=== PATIENT | female | born 1955 | race Caucasian/White ===

== ENCOUNTER 2016-05-01 12:55 | Emergency (ER) | payer OTHER ==
[~2016-05-01] VITALS: Ht 160 cm; Wt 92.8 kg
[~2016-05-01 12:55] MED LIST: ASPI-435 PO; LEVO125T5 PO; LISI-725 PO; LXP/20 PO; OMEP20CA59 PO; TRAZ-119 PO
[2016-05-01 13:11] VITALS: TEMP 36.6; Ht 160 cm; Wt 92.8 kg
[2016-05-01] MEDS ORDERED: HYDROCODONE/ACETAMOPHEN 5/325MG TAB PO STA (14:45)
[2016-05-01] MEDS ORDERED: CYCLOBENZAPRINE HCL 10 MG TAB PO STA (14:45)
[2016-05-01] MEDS ORDERED: KETOROLAC TROMETHAMINE 60 MG/2 ML VIAL IM STA (14:45)
--- NOTE | 2016-05-01 15:49 | DIAGNOSTIC IMAGING REPORT ---
L-SPINE MIN 4 VIEWS ROUTINE CLINICAL HISTORY: Low back pain. Evaluate for compression fracture. COMPARISON: CT of the abdomen and pelvis November 01, 2013. FINDINGS: There are cholecystectomy clips. Alignment of the lumbar spine is anatomic. Vertebral body heights are maintained. There is no acute fracture. Mild multilevel degenerative changes are present. There is extensive calcification of the abdominal aorta. IMPRESSION: 1. No acute lumbar spine fracture or subluxation. 2. Minimal multilevel degenerative changes of the lumbar spine. Electronically signed by: Tu Reynoso M.D. 05/01/2016 3:47 PM
--- NOTE | 2016-05-01 16:15 | EMERGENCY ROOM VISIT NOTE ---
ED Visit Note First contact with patient: 14:26 CHIEF COMPLAINT: Low back pain HISTORY OF PRESENT ILLNESS: This 60-year-old female patient complains of pain in the low back which started on Sunday. The patient states she does not remember any specific injury. She states later she was on the floor with her grandchildren and then could not get up. Since that time the pain has been getting progressively worse in the lower back and radiates around both sides and into her right buttocks. The patient denies any pain radiating down the leg or any numbness and tingling. The patient denies any prior injury to her back or any back surgery. The patient denies any urinary symptoms of frequency , urgency, dysuria or hematuria. REVIEW OF SYSTEMS:6 system review was performed and was negative unless stated otherwise in history of present illness. PMH: The patient is healthy; hypertension, cholecystectomy, kidney stones SOCIAL HISTORY: Patient lives with her . The patient denies any tobacco or alcohol use. PHYSICAL EXAM: Vital Signs normal: Reviewed Nurse's notes and agree. GENERAL: 60-year-old white female appears uncomfortable secondary to back pain. MENTAL STATUS: Alert and oriented 3 LUMBAR SPINE: No gross bony abnormality noted. Patient is tender to palpation over the spinous processes of the mid to low lumbar region. She is tender to palpation over bilateral paravertebral regions at this level. She has limited range of motion in all directions secondary to pain. Muscle strength is 5 out of 5 bilateral lower extremities and symmetrical. NEURO: Patient is able to heel and toe walk without difficulty. I lateral patellar and Achilles reflexes are 2+. Sensation is intact to pinprick bilateral lower extremities. Negative straight leg raise bilaterally. EMERGENCY DEPARTMENT COURSE: The patient was evaluated. The patient was given Toradol 60 mg IM, Flexeril 10 mg by mouth and [place] 5/325 mg 2 tablets by mouth for pain. X-ray of the lumbar spine was ordered and interpreted by the radiologist and myself. DIAGNOSTICS:L-SPINE MIN 4 VIEWS ROUTINE CLINICAL HISTORY: Low back pain. Evaluate for compression fracture. COMPARISON: CT of the abdomen and pelvis November 01, 2013. FINDINGS: There are cholecystectomy clips. Alignment of the lumbar spine is anatomic. Vertebral body heights are maintained. There is no acute fracture. Mild multilevel degenerative changes are present. There is extensive calcification of the abdominal aorta. IMPRESSION: 1. No acute lumbar spine fracture or subluxation. 2. Minimal multilevel degenerative changes of the lumbar spine. Electronically signed by: Tu Reynoso M.D. 05/01/2016 3:47 PM Patient was informed of the findings. The patient was reevaluated was feeling slightly better. The patient was discharged home in stable condition. DIAGNOSIS: Lumbar strain DISCHARGE INSTRUCTIONS AND TREATMENT: Ibuprofen 600 mg every 6 hours with food for pain. Rx is given for [place] 5/325 mg. 1-2 tablets every 6 hours as needed for more severe pain. Do not drive while taking the Vicodin. Patient was also given Rx for Flexeril 10 mg. One tablet p.o. every 8 hours for muscle spasms. Dispense [address] taking the Flexeril. Avoid staying in any one position for an extended period of time. Keep scheduled appointment with your family physician tomorrow for additional pain medication if needed . Problem List Medical Problems: (1) Acid reflux Status: Chronic (2) External hemorrhoid Status: Chronic Current/Historical Medications Scheduled Aspirin (Aspirin 81), 81 MG PO QAM Escitalopram Oxalate (Escitalopram Oxalate), 20 MG PO DAILY Levothyroxine Sodium (Levothyroxine Sodium), 125 MCG PO DAILY Lisinopril (Zestril), 20 MG PO QAM Omeprazole (Prilosec), 20 MG PO DAILY Trazodone Hcl (Desyrel), 50 MG PO HS Allergies Coded Allergies: No Known Allergies (Verified , 05/01/16) Vital Signs Date Time Temp Pulse Resp B/P Pulse Ox O2 Delivery O2 Flow Rate FiO2 05/01/16 13:11 36.6 80 18 164/75 95 Room Air Medications Administered Medications (Trade) Dose Ordered Sig/Zabrina Route Start Time Stop Time Status Last Admin Dose Admin Ketorolac Tromethamine (Toradol Inj) 60 mg NOW STAT IM 05/01/16 14:45 05/01/16 14:47 DC 05/01/16 14:52 60 MG Cyclobenzaprine HCl (Flexeril Tab) 10 mg NOW STAT PO 05/01/16 14:45 05/01/16 14:47 DC 05/01/16 14:51 10 MG Acetaminophen/ Hydrocodone Bitart ([place] 5/325 Tab) 2 tab NOW STAT PO 05/01/16 14:45 05/01/16 14:47 DC 05/01/16 14:51 2 TAB Departure Information Referrals Pro,Slava Hale M.D. (PCP) Patient Instructions A Signature Page, [facility]
[2016-05-01] MEDS ORDERED: HYDR-5688 PO (16:17)
[2016-05-01] MEDS ORDERED: CYCL10TA6 PO (16:17)
[2016-05-01 16:35] VITALS: BP 125/78; PULSE 78; O2SAT 95
== END 2016-05-01 16:37 | disposition home or self-care (01) ==
LOC: C.EDB 12:55 → C.EDD 16:37
DX: S39.012A Strain of muscle, fascia and tendon of lower back, initial encounter (principal); X58.XXXA Exposure to other specified factors, initial encounter; I10 Essential (primary) hypertension; K21.9 Gastro-esophageal reflux disease without esophagitis; Z79.82 Long term (current) use of aspirin; Z79.899 Other long term (current) drug therapy

== ENCOUNTER → 2016-06-16 | Outpatient (CLI) | payer OTHER ==
[~2016-06-16] MED LIST changes: +HYDR-5688 PO; +LEVO125T4 PO; -LEVO125T5 PO; -TRAZ-119 PO; +TRAZ1TAB16 PO
[2016-06-16 10:12] LABS: BASO % 0.6 %; BASO ABS # 0.05 K/uL (0-0.2); COMPLETE YES; EOS % 3.4 %; HEMATOCRIT 42.2 % (37-47); IG% 0.2 %; LYMPH % 24.2 %; LYMPH ABS # 2.11 K/uL (1.2-3.4); MEAN CELL VOLUME 85.6 fL (80-100); MEAN CORPUSCULAR HEMOGLOBIN 29.2 pg (25-34); MEAN CORPUSCULAR HGB CONC 34.1 g/dl (32-36); MEAN PLATELET VOLUME 9.3 fL (7.4-10.4); MONO % 9.5 %; NEUT % 62.1 %; PLATELET COUNT 308 K/uL (130-400); RED BLOOD COUNT 4.93 M/uL (4.2-5.4); WHITE BLOOD COUNT 8.73 K/uL (4.8-10.8)
[2016-06-16 10:28] LABS: ALT/SGPT 26 U/L (12-78); AST/SGOT 17 U/L (15-37); BLOOD UREA NITROGEN 15 mg/dl (7-18); CALCIUM 8.9 mg/dl (8.5-10.1); CARBON DIOXIDE 23 mmol/L (21-32); CHLORIDE 109 mmol/L (98-107); CHOLESTEROL 172 mg/dl (0-200); CREATININE 0.79 mg/dl (0.60-1.20); GLUCOSE 96 mg/dl (70-99); POTASSIUM 4.3 mmol/L (3.5-5.1); SODIUM 141 mmol/L (136-145)
[2016-06-16 10:34] LABS: CHOLESTEROL/HDL RATIO 3.6; HDL CHOLESTEROL 48 mg/dl; LDL CHOLESTEROL CALCULATED 87 mg/dl; TRIGLYCERIDES 186 mg/dl (0-150); VERY LOW DENSITY LIPOPROT CALC 37 mg/dl
== END | disposition home or self-care (01) ==
LOC: C.LAB1850 09:05
PROVIDERS: ATTEND Internal Medicine
DX: E03.9 Hypothyroidism, unspecified (principal); I10 Essential (primary) hypertension; K21.9 Gastro-esophageal reflux disease without esophagitis; M54.9 Dorsalgia, unspecified

== ENCOUNTER → 2016-11-20 | Outpatient (CLI) | payer OTHER ==
[~2016-11-20] MED LIST changes: -HYDR-5688 PO
--- NOTE | 2016-11-20 14:31 | MAMMOGRAPHY REPORT ---
BILATERAL DIGITAL SCREENING MAMMOGRAM WITH CAD: 11/20/2016 CLINICAL HISTORY: Routine screening. Patient has no complaints. TECHNIQUE: Current study was also evaluated with a Computer Aided Detection (CAD) system. Bilateral CC and MLO views were obtained. COMPARISON: Comparison is made to exams dated: 05/27/2015 mammogram, 03/30/2014 mammogram, 03/28/2013 mammogram, 03/26/2012 mammogram - [facility], and 08/29/2007. BREAST COMPOSITION: The tissue of both breasts is heterogeneously dense, which may obscure small mas ses. FINDINGS: No suspicious masses, calcifications, or areas of architectural distortion are noted in ei ther breast. There has been no significant interval change compared to prior exams. Bilateral benign -appearing calcifications are not significantly changed. IMPRESSION: ACR BI-RADS CATEGORY 2: BENIGN There is no mammographic evidence of malignancy. A 1 year screening mammogram is recommended. The pa tient will receive written notification of the results. Approximately 10% of breast cancers are not detected with mammography. A negative mammographic report should not delay biopsy if a clinically suggestive mass is present. Lissy Ayon M.D. /:11/20/2016 12:27:43 Appeals And Generalist Clerk: Mireille OCHOA)(Daryl), [facility] letter sent: Normal 1/2 BI-RADS Code: ACR BI-RADS Category 2: Benign
== END | disposition home or self-care (01) ==
LOC: C.MAMM 09:39
PROVIDERS: ATTEND Physician Assistant
DX: Z12.31 Encounter for screening mammogram for malignant neoplasm of breast (principal)

== ENCOUNTER → 2017-07-20 | Outpatient (CLI) | payer OTHER ==
[~2017-07-20] MED LIST changes: -LEVO125T4 PO; +LEVO125T5 PO; +TRAZ-119 PO; -TRAZ1TAB16 PO
[2017-07-20 09:51] LABS: BLOOD UREA NITROGEN 15 mg/dl (7-18); CALCIUM 8.8 mg/dl (8.5-10.1); CARBON DIOXIDE 27 mmol/L (21-32); CREATININE 0.94 mg/dl (0.60-1.20); GLUCOSE 100 mg/dl (70-99); POTASSIUM 3.8 mmol/L (3.5-5.1); SODIUM 139 mmol/L (136-145)
[2017-07-20 10:04] LABS: CHOLESTEROL 174 mg/dl (0-200); LDL CHOLESTEROL CALCULATED 90 mg/dl
== END | disposition home or self-care (01) ==
LOC: C.LAB1850 08:04
PROVIDERS: ATTEND Internal Medicine
DX: E03.9 Hypothyroidism, unspecified (principal); I10 Essential (primary) hypertension

== ENCOUNTER → 2017-07-25 | Outpatient (CLI) | payer OTHER | END | disposition home or self-care (01) | LOC: C.LAB1850 09:37 | PROVIDERS: ATTEND Physician Assistant | DX: R53.83 Other fatigue (principal); R73.9 Hyperglycemia, unspecified; E78.5 Hyperlipidemia, unspecified; Z80.42 Family history of malignant neoplasm of prostate; M54.9 Dorsalgia, unspecified ==

== ENCOUNTER → 2017-09-04 | Outpatient (CLI) | payer OTHER ==
[~2017-09-04] MED LIST changes: +AMOX875T PO; +ASPI-390 PO; +CALC-393 PO; +ESCI10TA17 PO; +MELATAB2 PO; -OMEP20CA59 PO; +OXYB5TAB PO; +PANT40TA2 PO; +RANI150T85 PO; +RQP25 PO; -TRAZ-119 PO
== END | disposition home or self-care (01) ==
LOC: C.LAB1850 13:38
PROVIDERS: ATTEND Physician Assistant
DX: E03.9 Hypothyroidism, unspecified (principal)

== ENCOUNTER → 2017-11-14 | Outpatient (CLI) | payer OTHER ==
[~2017-11-14] MED LIST changes: -AMOX875T PO; +LXP10 PO; +OMEP20TA14 PO
--- NOTE | 2017-11-14 16:12 | DIAGNOSTIC IMAGING REPORT ---
KUB CLINICAL HISTORY: R19.7 [id number] Abdominal [id number] Abdominal tend COMPARISON STUDY: No previous studies for comparison. FINDINGS: The soft tissues, psoas shadows, renal outlines and intestinal gas pattern appear normal. There is no evidence for bowel obstruction. No abnormal abdominal calcifications are seen. IMPRESSION: Normal study. The above report was generated using voice recognition software. It may contain grammatical, syntax or spelling errors. Electronically signed by: Eddi Cisneros M.D. 11/14/2017 4:11 PM Dictated Date/Time: 11/14/2017 4:10 PM
[2017-11-14 17:52] LABS: BASO % 0.3 %; BASO ABS # 0.03 K/uL (0-0.2); EOS % 2.3 %; HEMATOCRIT 43.5 % (37-47); HEMOGLOBIN 14.2 g/dL (12.0-16.0); IG# 0.02 K/uL (0.00-0.02); LYMPH % 34.2 %; MEAN CELL VOLUME 87.5 fL (80-100); MEAN CORPUSCULAR HEMOGLOBIN 28.6 pg (25-34); MEAN CORPUSCULAR HGB CONC 32.6 g/dl (32-36); MEAN PLATELET VOLUME 9.6 fL (7.4-10.4); MONO % 5.9 %; MONO ABS # 0.52 K/uL (0.11-0.59); NEUT % 57.1 %; NEUT ABS # 4.99 K/uL (1.4-6.5); PLATELET COUNT 271 K/uL (130-400); RED CELL DISTRIBUTION WIDTH CV 13.4 % (11.5-14.5); RED CELL DISTRIBUTION WIDTH SD 42.6 fL (36.4-46.3); WHITE BLOOD COUNT 8.76 K/uL (4.8-10.8)
[2017-11-14 18:04] LABS: ALBUMIN 3.6 gm/dl (3.4-5.0); ALKALINE PHOSPHATASE 59 U/L (45-117); ALT/SGPT 28 U/L (12-78); AST/SGOT 17 U/L (15-37); BLOOD UREA NITROGEN 12 mg/dl (7-18); CALCIUM 9.2 mg/dl (8.5-10.1); CARBON DIOXIDE 28 mmol/L (21-32); CREATININE 0.91 mg/dl (0.60-1.20); GLUCOSE 77 mg/dl (70-99); SODIUM 139 mmol/L (136-145); TOTAL PROTEIN 7.2 gm/dl (6.4-8.2)
== END | disposition home or self-care (01) ==
LOC: C.RAD1850 15:24
PROVIDERS: ATTEND Internal Medicine
DX: R19.7 Diarrhea, unspecified (principal); R10.819 Abdominal tenderness, unspecified site; E03.9 Hypothyroidism, unspecified

== ENCOUNTER 2017-11-22 12:42 | Emergency (ER) | payer OTHER ==
[~2017-11-22] VITALS: Ht 160 cm; Wt 92.3 kg
[~2017-11-22 12:42] MED LIST changes: -LXP10 PO; -OMEP20TA14 PO
[2017-11-22 12:44] VITALS: TEMP 36.4; Ht 160 cm; Wt 92.3 kg
[2017-11-22 13:18] VITALS: O2SAT 96
[2017-11-22 13:26] LABS: BASO % 0.6 %; BASO ABS # 0.07 K/uL (0-0.2); EOS ABS # 0.36 K/uL (0-0.5); HEMATOCRIT 43.2 % (37-47); HEMOGLOBIN 14.6 g/dL (12.0-16.0); IG# 0.04 K/uL (0.00-0.02); LYMPH % 20.3 %; LYMPH ABS # 2.47 K/uL (1.2-3.4); MEAN CELL VOLUME 86.6 fL (80-100); MEAN CORPUSCULAR HEMOGLOBIN 29.3 pg (25-34); MEAN CORPUSCULAR HGB CONC 33.8 g/dl (32-36); MEAN PLATELET VOLUME 9.2 fL (7.4-10.4); MONO % 6.6 %; NEUT % 69.2 %; NEUT ABS # 8.42 K/uL (1.4-6.5); PLATELET COUNT 248 K/uL (130-400); RED CELL DISTRIBUTION WIDTH CV 13.9 % (11.5-14.5); RED CELL DISTRIBUTION WIDTH SD 44.1 fL (36.4-46.3); WHITE BLOOD COUNT 12.16 K/uL (4.8-10.8)
[2017-11-22] MEDS ORDERED: OMEP20TA14 PO (13:32)
[2017-11-22] MEDS ORDERED: LXP10 PO (13:36)
[2017-11-22 13:48] LABS: ALBUMIN 3.5 gm/dl (3.4-5.0); CALCIUM 9.1 mg/dl (8.5-10.1); CREATININE 0.92 mg/dl (0.60-1.20); POTASSIUM 3.6 mmol/L (3.5-5.1); TOTAL PROTEIN 7.6 gm/dl (6.4-8.2)
[2017-11-22] MEDS ORDERED: OPTIRAY 320 IV PRN (15:15)
--- NOTE | 2017-11-22 15:27 | DIAGNOSTIC IMAGING REPORT ---
ABD/PELVIS IV AND ORAL CONT CT DOSE: 924.49 mGy.cm HISTORY: Pain generalized abd pain, no BM for 1 week, now mucus TECHNIQUE: Multiaxial CT images of the abdomen and pelvis were performed following the use of intravenous and oral contrast. A dose lowering technique was utilized adhering to the principles of ALARA. COMPARISON STUDY: None. FINDINGS: Minimal dependent basilar atelectasis. Mild fatty replacement of the liver. Prior cholecystectomy. Pancreas is uniform throughout. No dilatation of the pancreatic or biliary ductal systems. Kidneys are negative for hydronephrosis. Extrarenal pelves are noted bilaterally. Moderate fecal load throughout the colon. This includes the sigmoid colonic region. Minimal reactive small bowel ileus. Normal appendix. No evidence for rectal fecal impaction. Uterus is anteflexed. IMPRESSION: 1. Moderate to slightly increased fecal load throughout the colon including sigmoid colon. 2. No evidence for fecal impaction. 3. Mild reactive nonobstructive ileus. The above report was generated using voice recognition software. It may contain grammatical, syntax or spelling errors. Electronically signed by: Eddi Cisneros M.D. 11/22/2017 3:26 PM Dictated Date/Time: 11/22/2017 3:24 PM
[2017-11-22 15:32] VITALS: BP 92/82; PULSE 82; O2SAT 96
[2017-11-22] MEDS ORDERED: MAGNESIUM CITRATE 296 ML/BTL PO STA (16:02)
--- NOTE | 2017-11-22 16:14 | EMERGENCY ROOM VISIT NOTE ---
History First contact with patient: 12:50 Chief Complaint: GI ASSESSMENT Stated Complaint: CONSTIPATION,ABD PAIN Nursing Triage Summary: Patient started with diarrhea approximately a week ago. Now has constipation and nausea. Patient was seen by PCP for the diarrhea and given medication. History of Present Illness The patient is a 62 year old female who presents to the Emergency Room via private vehicle accompanied by male with complaints of "constipation, abdominal pain". The patient states that she has had generalized abdominal pain for 1 week. She notes that last week she had diarrhea for 4 days, and then had no bowel movement for several days. She states that now she has a mucus-like bowel movement. She notes associated nausea but no fevers, chills, vomiting or dysuria. She states that the entire abdomen is irritated. She also notes she has been treated with an unknown antibiotic for UTI. Review of Systems A complete 10-point Review of Systems was discussed with the patient, with pertinent positives and negatives listed in the History of Present Illness. All remaining Review of Systems questions can be considered negative unless otherwise specified. Past Medical/Surgical History Medical Problems: (1) Acid reflux (2) aspiration, hypoxia s/p EGD (3) aspiration, hypoxia s/p EGD (4) External hemorrhoid (5) Hypertension Nos (6) Osteoporosis Nos (7) Personal History Of Urinary Calculi Family History Heart disease Hypertension Kidney disease Kidney stones Social History Smoking Status: Never Smoker Alcohol Use: none Drug Use: none Marital Status: Housing Status: lives with family Occupation Status: unemployed Current/Historical Medications Scheduled Aspirin (Aspirin 81), 81 MG PO QAM Calcium Carbonate (Calcium), 1 TAB PO BID Escitalopram Oxalate (Escitalopram Oxalate), 20 MG PO QAM Escitalopram Oxalate (Escitalopram Oxalate), 10 MG PO HS Levothyroxine Sodium (Levothyroxine Sodium), 125 MCG PO QAM Lisinopril (Zestril), 20 MG PO QAM Melatonin (Melatonin Maximum Strengt), 10 MG PO HS Omeprazole Magnesium (Prilosec Otc), 40 MG PO HS Ranitidine (Zantac), 2 TAB PO QPM Ropinirole HCl (Ropinirole HCl), 2 TAB PO HS Scheduled PRN Alaczec-Dvlpvorweivub-Emjlmowl (Excedrin Migraine), 1 TAB PO DAILY PRN for Migraine Physical Exam Vital Signs Date Time Temp Pulse Resp B/P (MAP) Pulse Ox O2 Delivery O2 Flow Rate FiO2 11/22/17 15:32 82 16 92/82 96 Room Air 11/22/17 14:29 81 16 115/79 94 Room Air 11/22/17 13:18 96 Room Air 11/22/17 12:44 36.4 99 20 142/82 96 Room Air Physical Exam VITAL SIGNS - Vital signs and nursing notes were reviewed. Stable. Afebrile. GENERAL -62-year-old female appearing her stated age who is in no acute distress. Communicates well with provider and answers questions appropriately. SKIN - Without rashes. No meningeal or petechial rash. HEAD - NC/AT. EYES - Sclera anicteric. EARS - No deformities of external structures noted on gross examination bilaterally. NOSE - Midline and without cyanosis. No epistaxis or purulent drainage noted. MOUTH/OROPHARYNX - Without perioral cyanosis. LUNGS - Chest wall symmetric without accessory muscle use, intercostals retractions, or central cyanosis. Normal vesicular breath sounds CTA B/L. No wheezes, rales, or rhonchi appreciated. CARDIAC - RRR with S1/S2. No murmur, rubs, or gallops appreciated. ABDOMEN - Abdominal contour normal without pulsations or visible masses. BS normoactive all four quadrants. Generalized abdominal tenderness noted throughout the entire abdomen. No palpable masses, hepatosplenomegaly, or ascites noted. EXTREMITIES - No clubbing or peripheral cyanosis. No pretibial edema present. +5 /5 strength noted in UE/LE bilaterally. NEUROLOGIC - Cranial nerves II through XII grossly intact. Sensory intact to light touch throughout. PSYCH - A&O, and cooperates fully with examiner. Pt is very pleasant and interacts well with examiner. Medical Decision & Procedures ER Provider Diagnostic Interpretation: [~ rep ct add3]] ABD/PELVIS IV AND ORAL CONT CT DOSE: 924.49 mGy.cm HISTORY: Pain generalized abd pain, no BM for 1 week, now mucus TECHNIQUE: Multiaxial CT images of the abdomen and pelvis were performed following the use of intravenous and oral contrast. A dose lowering technique was utilized adhering to the principles of ALARA. COMPARISON STUDY: None. FINDINGS: Minimal dependent basilar atelectasis. Mild fatty replacement of the liver. Prior cholecystectomy. Pancreas is uniform throughout. No dilatation of the pancreatic or biliary ductal systems. Kidneys are negative for hydronephrosis. Extrarenal pelves are noted bilaterally. Moderate fecal load throughout the colon. This includes the sigmoid colonic region. Minimal reactive small bowel ileus. Normal appendix. No evidence for rectal fecal impaction. Uterus is anteflexed. IMPRESSION: 1. Moderate to slightly increased fecal load throughout the colon including sigmoid colon. 2. No evidence for fecal impaction. 3. Mild reactive nonobstructive ileus. The above report was generated using voice recognition software. It may contain grammatical, syntax or spelling errors. Electronically signed by: Eddi Cisneros M.D. 11/22/2017 3:26 PM Dictated Date/Time: 11/22/2017 3:24 PM Laboratory Results 11/22/17 13:13 Red Blood Count 4.99, Mean Corpuscular Volume 86.6, Mean Corpuscular Hemoglobin 29.3, Mean Corpuscular Hemoglobin Concent 33.8, Mean Platelet Volume 9.2, Neutrophils (%) (Auto) 69.2, Lymphocytes (%) (Auto) 20.3, Monocytes (%) (Auto) 6.6, Eosinophils (%) (Auto) 3.0, Basophils (%) (Auto) 0.6, Neutrophils # (Auto) 8.42, Lymphocytes # (Auto) 2.47, Monocytes # (Auto) 0.80, Eosinophils # (Auto) 0.36, Basophils # (Auto) 0.07 11/22/17 13:13 Test 11/22/17 13:13 11/22/17 13:22 White Blood Count 12.16 K/uL (4.8-10.8) Red Blood Count 4.99 M/uL (4.2-5.4) Hemoglobin 14.6 g/dL (12.0-16.0) Hematocrit 43.2 % (37-47) Mean Corpuscular Volume 86.6 fL (80-100) Mean Corpuscular Hemoglobin 29.3 pg (25-34) Mean Corpuscular Hemoglobin Concent 33.8 g/dl (32-36) Platelet Count 248 K/uL (130-400) Mean Platelet Volume 9.2 fL (7.4-10.4) Neutrophils (%) (Auto) 69.2 % Lymphocytes (%) (Auto) 20.3 % Monocytes (%) (Auto) 6.6 % Eosinophils (%) (Auto) 3.0 % Basophils (%) (Auto) 0.6 % Neutrophils # (Auto) 8.42 K/uL (1.4-6.5) Lymphocytes # (Auto) 2.47 K/uL (1.2-3.4) Monocytes # (Auto) 0.80 K/uL (0.11-0.59) Eosinophils # (Auto) 0.36 K/uL (0-0.5) Basophils # (Auto) 0.07 K/uL (0-0.2) RDW Standard Deviation 44.1 fL (36.4-46.3) RDW Coefficient of Variation 13.9 % (11.5-14.5) Immature Granulocyte % (Auto) 0.3 % Immature Granulocyte # (Auto) 0.04 K/uL (0.00-0.02) Anion Gap 4.0 mmol/L (3-11) Est Creatinine Clear Calc Drug Dose 69.3 ml/min Estimated GFR () 77.9 Estimated GFR (Non- 67.2 BUN/Creatinine Ratio 18.0 (10-20) Calcium Level 9.1 mg/dl (8.5-10.1) Magnesium Level 2.4 mg/dl (1.8-2.4) Total Bilirubin 0.3 mg/dl (0.2-1) Aspartate Amino Transf (AST/SGOT) 21 U/L (15-37) Alanine Aminotransferase (ALT/SGPT) 31 U/L (12-78) Alkaline Phosphatase 61 U/L (45-117) Total Protein 7.6 gm/dl (6.4-8.2) Albumin 3.5 gm/dl (3.4-5.0) Globulin 4.1 gm/dl (2.5-4.0) Albumin/Globulin Ratio 0.8 (0.9-2) Lipase 109 U/L (73-393) Urine Color YELLOW Urine Appearance CLEAR (CLEAR) Urine pH 5.0 (4.5-7.5) Urine Specific Whiting 1.011 (1.000-1.030) Urine Protein NEG (NEG) Urine Glucose (UA) NEG (NEG) Urine Ketones NEG (NEG) Urine Occult Blood TRACE (NEG) Urine Nitrite NEG (NEG) Urine Bilirubin NEG (NEG) Urine Urobilinogen NEG (NEG) Urine Leukocyte Esterase SMALL (NEG) Urine WBC (Auto) 1-5 /hpf (0-5) Urine RBC (Auto) 0-4 /hpf (0-4) Urine Hyaline Casts (Auto) 0 /lpf (0-5) Urine Epithelial Cells (Auto) 20-30 /lpf (0-5) Urine Bacteria (Auto) NEG (NEG) Medical Decision Patient was seen and evaluated as above in room C11. Review was performed of nursing notes and vital signs. After obtaining a thorough history and physical examination the above work up was performed. She presents to us today with generalized abdominal pain. No true bowel movement in over a week. Although she is nontoxic on exam, it was felt that she would require imaging here today. CBC reveals slight leukocytosis, no concerning anemia. No evidence of metabolic emergency on her CMP. Urinalysis is not indicative of UTI. See CT scan results as above. Noted that she has stool burden. Mild ileus secondary to this. She will be given magnesium citrate as she prefers this over MiraLAX. She is to take this while at home. She was thoroughly educated upon use of this. She is to return if no bowel movement 24 hours. She is to follow with the family doctor early next week. She was educated upon today's findings. I do not suspect any bowel obstruction underlying emergent process. Colonoscopy she notes is scheduled for next year. The patient was educated upon management , had questions answered prior to discharge, and was discharged home in good condition. Case was discussed with the attending physician. In the evaluation and treatment of this patient the following differential diagnoses were entertained: Ileus, appendicitis, bowel obstruction, diverticulitis, acute abdomen, UTI, among others. Impression Primary Impression: Constipation Departure Information Dispostion Home / Self-Care Condition GOOD Referrals Pro,Slava Hale M.D. (PCP) Patient Instructions [facility] Additional Instructions You have been treated in the Emergency Department your Abdominal Pain. It appears there is stool that needs to exit as we discussed. Please drink half of the bottle of magnesium citrate when you are home. As we discussed this can cause near explosive bowel movements. Please be cautious and near the bathroom when taking this medication. If you do not have any vomiting within 8 hours please drink the other half. If no bowel movement 24 hours please return here. For pain control, you can use the following [id number] medicines (if >12 yo): - Regular strength (325mg/tab) Tylenol (acetaminophen) 2 tabs every 4-6 hours as needed. Do not exceed 12 tablets in a 24 hour period. Avoid taking more than 3 grams (3000 mg) of Tylenol per day. This includes any other sources of acetaminophen you may take on a regular basis. - Regular strength (200 mg/tab) Advil (ibuprofen) 1-2 tabs every 4-6 hours as needed. Do not exceed a dose of 3200 mg per day. Drink plenty of water and stay well hydrated. As with any trip to the Emergency Department, you should follow-up with your Primary Care Provider from today's visit. Please call them first thing tomorrow to schedule follow-up. Return to the emergency department if your symptoms persist despite treatment plan outlined above or if the following symptoms occur: increased fevers, chills , worsening nausea/vomiting, blood in your stool or urine. ABD/PELVIS IV AND ORAL CONT CT DOSE: 924.49 mGy.cm HISTORY: Pain generalized abd pain, no BM for 1 week, now mucus TECHNIQUE: Multiaxial CT images of the abdomen and pelvis were performed following the use of intravenous and oral contrast. A dose lowering technique was utilized adhering to the principles of ALARA. COMPARISON STUDY: None. FINDINGS: Minimal dependent basilar atelectasis. Mild fatty replacement of the liver. Prior cholecystectomy. Pancreas is uniform throughout. No dilatation of the pancreatic or biliary ductal systems. Kidneys are negative for hydronephrosis. Extrarenal pelves are noted bilaterally. Moderate fecal load throughout the colon. This includes the sigmoid colonic region. Minimal reactive small bowel ileus. Normal appendix. No evidence for rectal fecal impaction. Uterus is anteflexed.
== END 2017-11-22 16:38 | disposition home or self-care (01) ==
LOC: C.EDB 12:43 → C.EDC 16:38
DX: K59.00 Constipation, unspecified (principal); R11.0 Nausea; I10 Essential (primary) hypertension; M81.0 Age-related osteoporosis without current pathological fracture; K21.9 Gastro-esophageal reflux disease without esophagitis; Z79.82 Long term (current) use of aspirin; Z79.899 Other long term (current) drug therapy

== ENCOUNTER 2025-03-20 11:22 | Observation (INO) ==
--- NOTE | 2025-03-12 14:54 | Anesthesiology Consultation ---
Date of Service March 12, 2025 Assessment & Plan (1) Encounter for pre-operative examination: - Infectious disease screening: Per assessment on 03/12/25- No known recent infectious disease contacts or current infectious disease symptoms. - Outpatient joint assessment: Pt currently scheduled for inpatient pathway. If surgeon requests review for outpatient joint pathway, patient is not a recommended candidate for outpatient joint program from anesthesia standpoint based on available information. - S/P Left Robotic TKA 12/05/24: SAB + regional at [facility]. No issues noted per post- op anesthesia progress note. - Preop testing: No recent/preop EKG received. Will order EKG for DOS. Chart Review Chart Review: Acceptable Risk for Surgery and Patient NOT seen in Pre Admission Testing History Surgery Operation Date: 03/20/25 13:00 Proposed Procedures p Robotic Assisted Right Total Knee Arthroplasty - Noe Doshi DO Height/Weight Height: 5 ft 3 in Weight: 72.575 kg Allergies Allergy/AdvReac Type Severity Reaction Status Date / Time No Known Allergies Allergy Verified 03/20/25 11:35 Medications Home Medications Medication Instructions Recorded Confirmed Last Taken calcium carbonate 600 mg PO QAM 03/10/19 03/20/25 03/19/25 08:00 melatonin 10 mg tablet 10 mg PO HS PRN Sleep 03/10/19 03/20/25 03/05/25 cariprazine 1.5 mg capsule 1.5 mg PO DAILY #90 caps 11/13/24 03/20/25 01/07/25 (Vraylar) sennosides 17.2 mg tablet (Senokot 17.2 mg PO HS PRN constipation #14 12/05/24 03/20/25 12/02/24 Extra Strength) tabs trazodone 50 mg tablet 50 mg PO HS #30 tabs 01/19/25 03/20/25 03/19/25 20:00 aspirin 81 mg tablet 81 mg PO QAM 03/12/25 03/20/25 03/19/25 08:00 escitalopram oxalate 10 mg tablet 10 mg PO QAM 03/12/25 03/20/25 03/20/25 08:00 (Lexapro) escitalopram oxalate 20 mg tablet 20 mg PO HS 03/12/25 03/20/25 03/19/25 19:30 (Lexapro) levothyroxine 125 mcg tablet 125 mcg PO QAM 03/12/25 03/20/25 03/20/25 08:00 lisinopril 20 mg tablet 20 mg PO QAM 03/12/25 03/20/25 03/19/25 08:00 meloxicam 15 mg tablet 15 mg PO QAM 03/12/25 03/20/25 03/13/25 pantoprazole 40 mg tablet,delayed 40 mg PO HS 03/12/25 03/20/25 03/19/25 20:00 release (Protonix) ropinirole 0.25 mg tablet See Rx Instructions .Route 03/18/25 03/20/25 03/19/25 20:00 .COMPLEX #60 tabs Active Medications Generic Name Dose Route Start Last Admin Trade Name Randy PRN Reason Stop Dose Admin Acetaminophen 1,000 mg 03/20/25 06:00 03/20/25 12:02 Acetaminophen 500 Mg Tab PO 03/20/25 18:00 1,000 mg PREOP ELENA Administration Dexamethasone Sodium Phosphate 10 mg 03/20/25 06:00 03/20/25 12:02 DexamethasonePf 10 Mg/Ml Vial IV 03/20/25 18:00 10 mg PREOP ELENA Administration Famotidine 20 mg 03/20/25 06:00 03/20/25 12:02 Famotidine 20 Mg Tab PO 03/20/25 18:00 20 mg PREOP ELENA Administration Gabapentin 300 mg 03/20/25 06:00 03/20/25 12:02 Gabapentin 300 Mg Cap PO 03/20/25 18:00 300 mg PREOP ELENA Administration Lactated Ringer's 1,000 mls @ 15 mls/hr 03/20/25 06:00 03/20/25 12:01 Lr IV 03/20/25 18:00 15 mls/hr .Q24H ELENA Administration Past Medical History Medical History Mood disorder Hypothyroidism HTN (hypertension) Osteoarthritis Seasonal allergies Low back pain occasional Hx of uterine prolapse History of panic attacks Anxiety and depression Restless leg syndrome GERD (gastroesophageal reflux disease) Stroke 1980- from taking control pills; denies any deficits Obstructive sleep apnea no device Past Family History Family History Father Myocardial infarction Cancer Mother Heart disease Brother Prostate cancer Denies family history of Colon cancer Ovarian cancer Breast cancer Past Surgical History Surgical History Status post left knee replacement Robotic Assisted Left TKA Nausea and vomiting after administration of anesthetic agent and headaches post-op History of cataract surgery right/left History of esophagogastroduodenoscopy (EGD) Hx of hysterectomy 09/2022 S/P excision of lipoma (01/05/21) Excision of multiple subcutaneous soft tissue mass left elbow area in office Dr. Wallace 01/05/21 Hx of colonoscopy History of tooth extraction S/P cholecystectomy Social History Smoking Status: Former smoker Do You Dip or Chew Tobacco: No Smoking End Date: quit ~2009 Hx Alcohol Use: No Hx Substance Use: Yes substance use type: marijuana (uses medical marijuana- advised) Physical Exam Vital Signs Last Vital Signs Temp 36.7 C 03/20/25 11:40 Pulse 61 03/20/25 11:40 Resp 20 03/20/25 11:40 BP 171/96 H 03/20/25 11:40 Pulse Ox 96 03/20/25 11:40 O2 Del Method Room Air 03/20/25 11:40 Lab Results Anesthesia Preop Results Results Anesthesia Widget: WBC 6.88 K/ul (4.8-10.8) 03/02/25 Hgb 14.2 g/dl (12.0-16.0) 03/02/25 Hct 43.8 % (37.0-47.0) 03/02/25 Plt 319 K/uL (130-400) 03/02/25 Na 140 mmol/L (136-145) 03/02/25 K 4.0 mmol/L (3.5-5.1) 03/02/25 Cl 104 mmol/L (98-107) 03/02/25 CO2 25 mmol/L (21-32) 03/02/25 BUN 19 mg/dl (6-23) 03/02/25 Creat 0.96 mg/dl (0.6-1.2) 03/02/25 Glucose Level 87 mg/dl (70-99(Fasting)) 03/02/25 PT 10.3 Seconds (9.0-12.0) 03/02/25 PTT 28 Seconds (21-31) 11/03/25 INR 1.0 (0.9-1.1) 03/02/25 Blood Type A Positive 03/02/25 Antibody Screen NEGATIVE 03/02/25 Testing Electrocardiogram Date: 02/11/24 NSR, rate 65 bpm Chest X-Ray Date: 11/12/24 PA and lateral chest radiographs are compared to study dated 02/11/2024. The cardiomediastinal silhouette is top normal for projection noting atherosclerotic calcification of the thoracic aorta. The lungs and pleural spaces are clear. There is no pneumothorax. The skeletal structures are osteopenic. The bony thorax appears intact. Cholecystectomy clips are seen in the right upper quadrant. IMPRESSION: No active disease in the chest.
--- NOTE | 2025-03-19 12:16 | History & Physical Report ---
Date of Service March 19, 2025 Assessment & Plan (1) Osteoarthritis of right knee: We will proceed with a right total knee arthroplasty. Postoperatively, she will be started on aspirin for DVT prophylaxis and kept overnight in the hospital for postop medical management. She plans to use the energy physical therapy at discharge. History of Present Illness Chief Complaint: Osteoarthritis right knee. Primary Care Provider: Slava Oconnell MD Asmita is a pleasant 69-year-old female who has been dealing with chronic increasing right knee pain. She underwent a left knee replacement about 3 months ago and has done very well with that. X-rays and clinical exam have been diagnostic for advanced osteoarthritis of the right knee. After failing conservative treatment, she has elected to proceed with a right total knee arthroplasty.. Allergies Allergy/AdvReac Type Severity Reaction Status Date / Time No Known Allergies Allergy Verified 03/12/25 14:16 Home Medications Medication Instructions Recorded Confirmed Type calcium carbonate 600 mg PO QAM 03/10/19 03/12/25 History melatonin 10 mg tablet 10 mg PO HS PRN Sleep 03/10/19 03/12/25 History cariprazine 1.5 mg capsule 1.5 mg PO DAILY #90 caps 11/13/24 03/12/25 Rx (Vraylar) sennosides 17.2 mg tablet (Senokot 17.2 mg PO HS PRN constipation #14 12/05/24 03/12/25 Rx Extra Strength) tabs trazodone 50 mg tablet 50 mg PO HS #30 tabs 01/19/25 03/12/25 Rx aspirin 81 mg tablet 81 mg PO QAM 03/12/25 03/12/25 History escitalopram oxalate 10 mg tablet 10 mg PO QAM 03/12/25 03/12/25 History (Lexapro) escitalopram oxalate 20 mg tablet 20 mg PO HS 03/12/25 03/12/25 History (Lexapro) levothyroxine 125 mcg tablet 125 mcg PO QAM 03/12/25 03/12/25 History lisinopril 20 mg tablet 20 mg PO QAM 03/12/25 03/12/25 History meloxicam 15 mg tablet 15 mg PO QAM 03/12/25 03/12/25 History pantoprazole 40 mg tablet,delayed 40 mg PO HS 03/12/25 03/12/25 History release (Protonix) ropinirole 0.25 mg tablet See Rx Instructions .Route 03/18/25 Rx .COMPLEX #60 tabs Past Med/Surg History Problem List Osteoarthritis of right knee Status post total left knee replacement Osteoarthritis of left knee Encounter for pre-operative examination Current use of proton pump inhibitor Uterine prolapse Arthritis Lipoma Low back pain HTN (hypertension) Hypothyroidism Urge incontinence of urine (Acute) Mood disorder Restless legs syndrome Acid reflux (Chronic) Medical History Mood disorder Hypothyroidism HTN (hypertension) Osteoarthritis Seasonal allergies Low back pain occasional Hx of uterine prolapse History of panic attacks Anxiety and depression Restless leg syndrome GERD (gastroesophageal reflux disease) Stroke 1980- from taking control pills; denies any deficits Obstructive sleep apnea no device Surgical History Status post left knee replacement Robotic Assisted Left TKA Nausea and vomiting after administration of anesthetic agent and headaches post-op History of cataract surgery right/left History of esophagogastroduodenoscopy (EGD) Hx of hysterectomy 09/2022 S/P excision of lipoma (01/05/21) Excision of multiple subcutaneous soft tissue mass left elbow area in office Dr. Wallace 01/05/21 Hx of colonoscopy History of tooth extraction S/P cholecystectomy Family History Father Myocardial infarction Cancer Mother Heart disease Brother Prostate cancer Denies family history of Colon cancer Ovarian cancer Breast cancer Social History Smoking Status: Former smoker Tobacco Type: Cigarettes Age Started Using Tobacco: 16; Age Quit Using Tobacco: 59; packs per day: 1.5; Smoking End Date: quit ~2009; Second Hand Exposure: Yes (hx); Do You Dip or Chew Tobacco: No; Tobacco Cessation Education Requested by Patient: No Hx Alcohol Use: No Hx Substance Use: Yes Preferred Language: Greek Communication Ability: Effective Hearing Ability: Normal Digital Asset Manager Required: No Beliefs That Will Affect Care: None marital status: Current Living Situation: Spouse current occupational status: unemployed How many Children do You have: 2 Other Information That Helps Us Care for You: No Feels Safe at Home: Yes Safety Concerns: Feels Safe At This Time Childhood Exposure to Second-Hand Smoke: Yes Diet: regular during the past year weight has: decreased > 10 lbs Dental Care, Regularly: No Physical Activity Frequency: Does not Exercise Seatbelt Use: always Sunscreen Use: No Assistive Devices: Denture - Upper Review of Systems All systems reviewed & are unremarkable except as noted in HPI & below. Physical Exam On physical exam of the right knee, she has slight varus deformity. Tenderness palpation of the distal medial femoral condyle and over the medial joint line.. Constitutional WD/WN, vitals as above Eyes PERRL, conjunctivae normal, anicteric sclerae ENMT external ear and nose normal, oropharynx normal Neck trachea midline, no thyromegaly Respiratory normal respiratory effort Cardiovascular RRR, no murmur, no edema Gastrointestinal (Abdomen) normal bowel sounds, soft, nontender, no hepatosplenomegaly Psychiatric A+Ox3, euthymic affect Results & Data Results & Data Laboratory Results . Diagnostic Findings . PG Care Time/CCT Total # of Minutes Spent Total Time Spent with Patient: Total time spent is greater than 50% in coordination of care (as documented) at patient's floor/unit and/or counseling patient: Coding Level of Care Code None Diagnoses Osteoarthritis of right knee M17.11
[~2025-03-20 11:22] MED LIST changes: -ASPI-390 PO; -ASPI-435 PO; -CALC-393 PO; -ESCI10TA17 PO; -LEVO125T5 PO; -LISI-725 PO; -LXP/20 PO; -MELATAB2 PO; +MIDAZOLAM HCL 1 MG/ML 2ML VIAL ONE; +ONDANSETRON INJ 2 MG/ML 2 ML VIAL ONE; -OXYB5TAB PO; -PANT40TA2 PO; +PROPOFOL IV EMULSION 10 MG/ML 20 ML VIAL IV ONE; -RANI150T85 PO; +ROPIVACAINE 0.5% 5 MG/ML 30 ML VIAL ONE; -RQP25 PO
--- NOTE | 2025-03-20 11:57 | History & Physical Bridge Note ---
Date of Service March 20, 2025 History & Physical Bridge Note I have examined the patient, reviewed the History & Physical and in the interval since the performance of the History & Physical I have noted the following changes of clinical significance: no changes noted
[2025-03-20] MEDS: LR 500ML BOLUS, THEN 15ML/HR IV SCH (12:01)
[2025-03-20] MEDS: dexAMETHasone**PF** 10 MG/ML VIAL IV SCH (12:02)
[2025-03-20] MEDS: GABAPENTIN 300 MG CAP PO SCH (12:02)
[2025-03-20] MEDS: FAMOTIDINE 20 MG TAB PO SCH (12:02)
[2025-03-20] MEDS: ACETAMINOPHEN 500 MG TAB PO SCH ×2 (12:02→19:50)
[2025-03-20] MEDS ORDERED: HYDROmorphone INJ 1 MG/ML SYRINGE IV PRN (12:37)
[2025-03-20] MEDS ORDERED: ONDANSETRON INJ 2 MG/ML 2 ML VIAL IV PRN ×2 (12:37→15:52)
[2025-03-20] MEDS ORDERED: KETOROLAC 30 MG/ML VIAL IV PRN (12:37)
[2025-03-20] MEDS ORDERED: ATROPINE SULFATE 0.1 MG/ML 10ML SYR IV PRN (12:37)
[2025-03-20] MEDS: TRANEXAMIC ACID 1,000 MG **IV Pre-op IV SCH (12:42)
[2025-03-20] MEDS: LR 60ML/HR IV SCH (12:57)
[2025-03-20] MEDS: ORTHO JOINT ANESTHETIC ONE (13:31)
[2025-03-20] MEDS ORDERED: PROPOFOL IV EMULSION 10 MG/ML 20 ML VIAL IV ONE (13:45)
[2025-03-20] MEDS: ROPIV 0.5% 246mg, Ketorolac 30mg, EPINEPHrine 0.5mg in NSS INFIL SCH (13:49)
--- NOTE | 2025-03-20 13:55 | Operative Report ---
PG Post Operative Report Pre & Post Diagnosis Operation Date: 03/20/25 13:00 Pre-Op Diagnosis: Osteoarthritis of right knee Post-Op Diagnosis: Osteoarthritis of right knee I identified the patient and participated in the time-out.: Yes Procedure Operation Date: 03/20/25 13:00 Actual Procedures p Robotic Assisted Right Total Knee Arthroplasty(Right) - Noe Doshi DO Surgeon Noe Doshi DO Counselor At Law Duane Awad PA-C Estimated Blood Loss 30 Findings Consistent with Post-Op Diagnosis Specimens Right femoral and tibial bone Description of Procedure Implants used: I used a [employer] total knee arthroplasty system with a size 7 narrow PS femur, C tibia, 29 patella, and a size 10 CPS polyethylene bearing. All components were press-fit in place. Asmita arrived [facility] for the above procedure. She was seen in the preoperative holding area and the operative extremity was identified and signed. She was given a preoperative antibiotic, TXA, a spinal anesthetic and an adductor nerve block. She was taken back to the operating room and laid on the table in supine position. She was given basic sedation. The operative knee was then prepped and draped in sterile fashion. A timeout was done, and the patient and the operative extremity was properly identified. A midline incision was made directly over the patella. Dissection was taken down to the extensor mechanism. A medial parapatellar arthrotomy was used. The medial retinaculum was released and the fat pad was mostly excised. The knee was flexed and the ACL, PCL, and meniscus were removed. The alignment of the knee replacement was assisted with a [employer] robotic knee. The femoral array was pinned in the distal femur and the tibial array was pinned using a percutaneous technique in the upper shaft of the tibia. The robot was appropriately calibrated and the structure of the knee was mapped out. The components were then manipulated on the screen to account for any malalignment and to assist in gap balancing. Once I was happy with the placement of the components on the screen, a distal femoral cutting guide was brought in place. The distal femur was then resected. The femur measured to be a size 7. A 4-in-1 cutting block was then put into place by the robot and 2 peg holes were drilled. The 4-in-1 cutting block was then impacted into place and anterior, posterior, and chamfer cuts were made. The cutting block was then brought down to the tibia and pinned into place. The proximal tibia was then resected. The posterior aspect of the knee was then opened up and any additional meniscus fragments and osteophytes were removed. The tibia measured to be a size C. The tibial plate was then placed in the appropriate rotation and the tibia was drilled and punched. Trial components were then placed. The patella was then everted and 9 mm was resected off the posterior aspect of the patella. The patella measured to be a size 29. 3 peg holes were then drilled. A trial patella was placed. A size 10 CPS polyethylene insert was then trialed. The knee was brought through a full range of motion and felt to be stable. Trial components were then removed. The surrounding soft tissues were injected with 100 cc of an orthopedic pain control cocktail. All components were then press-fit into place. The final polyethylene insert was then snapped into place. The tourniquet was deflated. Hemostasis was obtained. A dilute betadyne lavage was then done for 3 minutes. The joint was then irrigated with normal saline solution. The medial parapatellar arthrotomy was then closed with #1 Vicryl suture. The skin was closed with 2-0 Vicryl, 3-0V lock suture, and [place] Zipline. A soft compressive dressing was placed. She was then transferred to a hospital bed and taken to the postanesthesia care unit in stable condition. She tolerated the procedure well. Duane Awad PA-C, was present for the entire procedure. He was critical for patient positioning, prepping, draping, retraction exposure, wound closure and application of sterile dressing. I attest to the content of the Intraoperative Record and any orders documented therein. Any exceptions are noted below.
--- NOTE | 2025-03-20 14:54 | XRay Report ---
XR knee RT 1 or 2V routine CLINICAL HISTORY: Surgical Post Op COMPARISON: None FINDINGS: Right knee prosthesis shows no hardware complication. There is expected soft tissue gas. IMPRESSION: Unremarkable postoperative exam. ACT 112: Negative or not required by law. Electronically signed by: Bereket Dumont M.D. 03/20/2025 2:53 PM
--- NOTE | 2025-03-20 15:01 | Anesthesiology Progress Note ---
Date of Service March 20, 2025 Anesthesia Post Procedure Vital Signs Vital Signs: Temp Pulse Pulse Resp BP BP Pulse Ox 03/20/25 14:40 62 16 144/74 H 92 03/20/25 14:30 68 17 148/82 H 96 03/20/25 14:23 36.5 C 71 13 126/72 97 03/20/25 11:40 36.7 C 61 20 171/96 H 96 O2 Del Method O2 Flow Rate 03/20/25 14:40 Room Air 03/20/25 14:30 Oxymask 2 03/20/25 14:23 Oxymask 4 03/20/25 11:40 Room Air Transfer of Care Handoff Completed per policy Notes Mental Status: alert / awake / arousable Patient Amnestic to Procedure: Yes Nausea / Vomiting: adequately controlled Pain: adequately controlled Airway Patency, RR, SpO2: stable & adequate BP & HR: stable & adequate Hydration State: stable & adequate Neuraxial Anesthesia: was administered and sensory block is resolving Anesthetic Complications: no major complications apparent
[2025-03-20] MEDS ORDERED: MAGNESIUM HYDROXIDE SUSP 30 ML UDC PO PRN (15:52)
[2025-03-20] MEDS ORDERED: diphenhydrAMINE Capsule 25 MG CAP PO PRN (15:52)
[2025-03-20] MEDS ORDERED: NALOXONE HCL 0.4 MG/1 ML VIAL/CARP IV PRN (15:52)
[2025-03-20] MEDS ORDERED: METOCLOPRAMIDE HCL INJ 5 MG/ML 2 ML VIAL IV PRN (15:52)
[2025-03-20] MEDS ORDERED: MELATONIN 3 MG TAB PO PRN (16:02)
[2025-03-20] MEDS: SODIUM CHLORIDE 0.9% 1,000 ML IV SCH (19:16)
[2025-03-20] MEDS: KETOROLAC TROMETHAMINE 15 MG/ML VIAL IV SCH (19:49)
[2025-03-20] MEDS ORDERED: Nursing to Pharmacy Communication SCH (21:45)
[2025-03-20] MEDS: ASPIRIN 81 MG ECTAB PO SCH (21:47)
[2025-03-20] MEDS: SENNA 8.6 MG TAB PO SCH (21:47)
[2025-03-20] MEDS: DOCUSATE SODIUM 100 MG CAP PO SCH (21:47)
[2025-03-20] MEDS: ESCITALOPRAM OXALATE 20 MG TAB PO SCH (21:48)
[2025-03-20 23:25] VITALS: RESP 16; TEMP 97.7
[2025-03-21 03:27] VITALS: PULSE 60
[2025-03-21] MEDS ORDERED: Nursing to Pharmacy Communication SCH (05:45)
[2025-03-21] MEDS: LEVOTHYROXINE SODIUM 125 MCG TABLET PO SCH (05:45)
[2025-03-21 07:55] VITALS: BP 118/81; O2SAT 97
--- NOTE | 2025-03-21 08:35 | Orthopedic Progress Note ---
Date of Service March 21, 2025 Assessment & Plan (1) Status post right knee replacement: Overall she is doing fairly well. She is not having much pain in the right knee. She will be seen by physical therapy today for ambulation and range of motion exercises. She is on aspirin for DVT prophylaxis. She can be discharged to home later today. She will follow-up orthopedics in 2 weeks. Amrit Tian was seen and examined at bedside this morning. Overall she is doing fairly well. She is not having much pain in the right knee. She has been up and ambulating to the bathroom. She has no complaints.. Review of Systems All systems reviewed & are unremarkable except as noted in HPI & below. Physical Exam On physical exam of the right knee, the dressing is clean and dry. The leg is out in full extension. She has active dorsiflexion and plantarflexion of the right ankle.. Results & Data Results & Data Laboratory Results . Diagnostic Findings Postoperative x-rays of the right knee show the prosthesis to be in anatomic alignment without any evidence of fracture, dislocation, or loosening.. PG Care Time/CCT Total # of Minutes Spent Total Time Spent with Patient: Total time spent is greater than 50% in coordination of care (as documented) at patient's floor/unit and/or counseling patient: Coding Level of Care Code 79079 Post Operative Follow-Up Diagnoses Status post right knee replacement Z96.651
[2025-03-21] MEDS: CALCIUM CARBONATE 1250MG TAB PO SCH (09:01)
[2025-03-21] MEDS: ESCITALOPRAM OXALATE 10 MG TAB PO SCH (09:01)
[2025-03-21] MEDS: MULTIVITAMIN TAB PO SCH (09:01)
== END 2025-03-21 10:55 | disposition home or self-care (01) ==
LOC: ASU 11:22 → EDINP 11:22 → 3E 18:31